=== PATIENT | male | born 1945 | race Caucasian/White ===

== ENCOUNTER 2022-12-04 11:57 | Outpatient (AMB) | payer OTHER, SELFPAY ==
--- NOTE | 2022-12-04 13:09 | A.OFFVIS_ITS ---
Intake Intake Visit Reasons: Erictile Dysfunction Intake Note: New Patient is Present for Erectile Dysfunction Current Medication: (Leg Numbness with Cialis, Sildenafil ineffective) Antibiotic Allergy: Blood Thinner: Pharmacy: [facility]: Allergies No Known Allergies Allergy (Verified 12/04/22 13:13) Medication List - Last Reconciled 12/04/[address] Alcocer MD alprostadil ([place]) 1,000 mcg intra-urethral ONCE PRN 30 days losartan 50 mg PO DAILY sildenafil 100 mg PO ONCE PRN 30 days HPI HPI Comments History of Present Illness Details Lobito is a pleasant male. He is a patient of Dr. Stearns . He is seen for the following urologic conditions - erectile dysfunction Erectile Dysfunction He presents today for - initial evaluation erectile dysfunction Current treatment includes - none At the time of initial evaluation he experiences - a partial in insufficient for vaginal penetration - undergo de tumescence prior presentation Symptoms have been present for/since - progressive Nocturnal erections do not occur Prior therapies include - sildenafil 100 mg minimal effect, tadalafil painful legs Treatment side effects include - painful legs Baseline IEEF - 5 severe erectile dysfunction Associated Medical Conditions include hypertension Physical Performance Status is able to walk 200 yd and can ascend 2 flights of stairs easily without breathlessness Atherosclerosis Cardiovascular Disease Risk - not complete Medications include(s) antihypertensive Investigations include - Overall he is not satisfied with current management Therapeutic plan includes - increasing dose of oral medication [facility] Medical History (Updated 12/04/22 @ 13:[address] MD) HTN (hypertension) Hyperlipidemia Obesity Review of Systems Const Denies chills and Denies fever(s) Card Reports no additional complaints and Denies syncope Resp Denies cough GI Denies abdominal pain and Denies heartburn Reports as per HPI and Denies change in libido Neuro Denies syncope Psych Denies change in libido Endo Denies change in libido Physical Exam Const General: cooperative, healthy appearing, comfortable and no acute distress Orientation/consciousness: patient oriented x3 HEENT Face and sinus: Yes normal facial exam Mouth: moist mucous membranes Neck Neck: Yes normal visual inspection, Yes full ROM and Yes trachea midline Chest Chest palpation & inspection: normal inspection of the chest Resp Effort & Inspection: normal respiratory effort, able to speak in complete sentences and no respiratory distress GI Inspection: Yes normal to inspection Back/Spine/Pelvis Cervical Spine: normal cervical lordosis Thoracic/Lumbar Spine: thoracic and lumbar spine normal to inspection Skin General skin exam: no rashes or lesions noted Neuro General: patient oriented x3, gait normal, tone normal and moves all extremities Extrem General: Yes normal to inspection and Yes capillary refill normal Assessment & Plan Assessment & Plan (1) Erectile dysfunction: Code(s): N52.9 - Male erectile dysfunction, unspecified Plan Three month follow-up Medications: New sildenafil administer 60 minutes before intended activity - may use up to 2 tablets 100 mg PO ONCE PRN 30 tabs 1RF sexual activity 30 days E11.69 - Type 2 diabetes mellitus with other specified complication, N52.1 - Erectile dysfunction due to diseases classified elsewhere, N52.9 - Male erectile dysfunction, unspecified alprostadil ([place]) 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 No major barriers to patient understanding were identified. An opportunity to ask questions regarding the treatment plan was provided. All questions were answered. The patient expressed understanding and agreement with the above treatment plan. The patient is aware they should contact our office by phone for worsening of their current condition or the appearance of new urologic symptoms. Compliance is encouraged with any medications and followup testing that is ordered. It is a privilege to participate in the urologic care of your patient. If you have any questions or concerns regarding treatment for the above conditions, or other urologic issues, please do not hesitate to contact me. The office telephone contact is [phone]. This note is constructed using voice recognition software. While every effort has been made to ensure accuracy telecommunications officer errors may have been included. Yours sincerely, Dr Lane Alcocer MD, [facility] Providers of Expert, Compassionate Care for the Genitourinary System Coding Level of Care Code New Pt Level 4 (42205) Diagnoses Erectile dysfunction N52.9
== END 2022-12-04 13:58 | disposition home or self-care (01) ==
PROVIDERS: PCP Internal Medicine; Visit Provider Urology
DX: N52.9 Male erectile dysfunction, unspecified (principal)
CPT/HCPCS: 99204

== ENCOUNTER → 2022-12-04 11:57 | Outpatient (BNVA) | payer OTHER, SELFPAY | PROVIDERS: PCP Internal Medicine; Visit Provider Urology ==